=== PATIENT | male | born 1950 | race Caucasian/White ===

== ENCOUNTER 2021-05-30 13:13 | Outpatient (CLI) | payer MEDICARE, BC, OTHER | END 2021-05-30 23:59 | disposition home or self-care (01) | LOC: RAD 13:13 | PROVIDERS: ATTEND Psychiatry & Neurology Neurology | DX: R94.01 Abnormal electroencephalogram [EEG] (principal); F03.90 Unspecified dementia, unspecified severity, without behavioral disturbance, psychotic disturbance, mood disturbance, and anxiety; R25.1 Tremor, unspecified | CPT/HCPCS: 95816 ==